=== PATIENT | male | born 1960 | race Caucasian/White ===

== ENCOUNTER 2023-02-22 16:06 | Observation (INO) | payer OTHER ==
[~2023-02-22] VITALS: Ht 177.8 cm; Wt 106.6 kg
[2023-02-22 16:42] LABS: BASOPHILS % 0.6 % (0.0-1.0); EOSINOPHILS # (AUTO) 0.2 (0.0-0.4); EOSINOPHILS % 2.7 % (0.0-6.0); HEMATOCRIT 44.8 % (38.2-49.6); HEMOGLOBIN 14.9 g/dL (14.0-18.0); LYMPHOCYTES # (AUTO) 1.6 (1.0-3.2); LYMPHOCYTES % 23.8 % (18.0-39.1); MEAN CORPUSCULAR HEMOGLOBIN 26.2 pg (28-32); MEAN CORPUSCULAR HGB CONC 33.3 g/dL (31-35); MEAN CORPUSCULAR VOLUME 78.9 fL (81-99); MONOCYTES # (AUTO) 0.6 (0.2-0.8); MONOCYTES % 9.3 % (4.4-11.3); NEUTROPHILS # (AUTO) 4.3 (2.1-6.9); NEUTROPHILS % 63.5 % (38.7-80.0); PLATELET COUNT 192 x10e3/uL (140-360); RED BLOOD COUNT 5.68 x10e6/uL (4.3-5.7)
[2023-02-22] MEDS ORDERED: ASPIRIN 81 MG CHEW TAB PO ONE (16:45)
[2023-02-22 16:56] LABS: INR 0.97; PROTHROMBIN TIME 13.4 seconds (11.9-14.5)
[2023-02-22 16:57] LABS: PARTIAL THROMBOPLASTIN TIME 28.9 seconds (23.8-35.5)
[2023-02-22 17:05] LABS: ALBUMIN 4.2 g/dL (3.5-5.0); ALBUMIN/GLOBULIN RATIO 1.1 (0.8-2.0); ANION GAP 14.4 mmol/L (8-16); CALCIUM 9.2 mg/dL (8.4-10.2); CREATININE, SERUM 1.21 mg/dL (0.72-1.25); POTASSIUM 3.4 mmol/L (3.5-5.1)
[2023-02-22] MEDS ORDERED: SODIUM CHLORIDE 0.9% 1000ML 1,000 ML IV STA (17:18)
[2023-02-22] MEDS ORDERED: IOPAMIDOL 370 MG/ML 100 ML INFUS..BTL INJ ONE (17:42)
[2023-02-22] MEDS ORDERED: FAMOTIDINE 20 MG/2 ML VIAL IV SCH (18:15)
[2023-02-22] MEDS ORDERED: Morphine 2mg Syringe 2 MG/ML SYR IV PRN (18:15)
[2023-02-22] MEDS ORDERED: ONDANSETRON HCL INJ 2MG/ML 2ML 2 MG/ML VIAL IV PRN (18:15)
[2023-02-22] MEDS ORDERED: NITROGLYCERIN 0.4 MG SUBL SL PRN (18:15)
[2023-02-22] MEDS ORDERED: HYDRALAZINE HCL 20 MG/ML VIAL IV PRN (19:45)
[2023-02-22] MEDS ORDERED: MELATONIN 3 MG TAB PO PRN (19:45)
[2023-02-22] MEDS ORDERED: ACETAMINOPHEN 325 MG TAB PO PRN (19:45)
[2023-02-22 20:21] VITALS: BP 157/107; PULSE 59; RESP 18; TEMP 97.7; O2SAT 100
[2023-02-22 20:23] VITALS: BP 157/107; PULSE 59; RESP 18; TEMP 97.7; O2SAT 100
[2023-02-22] MEDS ORDERED: ATORVASTATIN 40 MG TAB PO SCH (21:00)
[2023-02-22] MEDS: ENOXAPARIN SOD INJ 40 MG/0.4 ML SYR SC SCH (21:31)
[2023-02-22] MEDS: FAMOTIDINE 20 MG/2 ML VIAL IV SCH (21:32)
[2023-02-22 22:01] VITALS: BP 157/107; PULSE 59; RESP 18; TEMP 97.7; O2SAT 100
[2023-02-23 00:39] VITALS: BP 142/82; PULSE 62; RESP 17; TEMP 97.8; O2SAT 100
[2023-02-23 00:42] LABS: CREATINE KINASE 71 IU/L (30-200)
[2023-02-23] MEDS ORDERED: LOSARTAN POTAS100 MG PO (01:56)
[2023-02-23] MEDS ORDERED: HYDROCHLOROTHIA25 MG PO (01:56)
[2023-02-23] MEDS ORDERED: TIZANIDINE HCL4 M1 PO (01:56)
[2023-02-23] MEDS ORDERED: CLONIDINE HCL0.2 MG PO (01:56)
[2023-02-23] MEDS ORDERED: MELOXICAM7.5 MG PO (01:56)
[2023-02-23] MEDS ORDERED: AMLODIPINE BESY10 MG PO (01:56)
[2023-02-23] MEDS ORDERED: NEURONTIN400 MG PO (01:56)
[2023-02-23] MEDS ORDERED: TRIAMCINOLONE A15 G1 TOP (01:56)
[2023-02-23] MEDS ORDERED: SERTRALINE HCL100 MG PO (01:56)
[2023-02-23 04:54] LABS: BASOPHILS # (AUTO) 0.1 (0.0-0.1); EOSINOPHILS # (AUTO) 0.2 (0.0-0.4); EOSINOPHILS % 3.4 % (0.0-6.0); HEMATOCRIT 40.6 % (38.2-49.6); HEMOGLOBIN 13.2 g/dL (14.0-18.0); LYMPHOCYTES # (AUTO) 1.6 (1.0-3.2); LYMPHOCYTES % 30.3 % (18.0-39.1); MEAN CORPUSCULAR HEMOGLOBIN 26.3 pg (28-32); MEAN CORPUSCULAR HGB CONC 32.5 g/dL (31-35); MEAN CORPUSCULAR VOLUME 80.9 fL (81-99); MONOCYTES # (AUTO) 0.5 (0.2-0.8); NEUTROPHILS # (AUTO) 2.9 (2.1-6.9); NEUTROPHILS % 56.1 % (38.7-80.0); PLATELET COUNT 159 x10e3/uL (140-360); RED BLOOD COUNT 5.02 x10e6/uL (4.3-5.7); RED CELL DISTRIBUTION WIDTH 14.3 % (11.7-14.4)
[2023-02-23 05:13] LABS: ALBUMIN 3.4 g/dL (3.5-5.0); ALBUMIN/GLOBULIN RATIO 1.1 (0.8-2.0); ANION GAP 12.5 mmol/L (8-16); CALCIUM 8.7 mg/dL (8.4-10.2); CHOL/HDL RATIO 5.2 (3.9-4.7); CREATININE, SERUM 1.2 mg/dL (0.72-1.25); POTASSIUM 3.5 mmol/L (3.5-5.1)
[2023-02-23] MEDS ORDERED: ACETAMINOPHEN-1 EAC4 (05:19)
[2023-02-23 05:57] VITALS: BP 153/93; PULSE 69; RESP 20; TEMP 98.1; O2SAT 100
[2023-02-23 07:50] VITALS: BP 147/91; PULSE 53; RESP 21; TEMP 98.2; O2SAT 100
[2023-02-23 08:14] VITALS: BP 147/91; PULSE 53; RESP 21; TEMP 98.2; O2SAT 100
[2023-02-23] MEDS ORDERED: ASPIRIN 81 MG ENTERIC COATED PO SCH (09:00)
[2023-02-23] MEDS ORDERED: ASPIRIN 81 MG CHEW TAB PO SCH (09:00)
[2023-02-23] MEDS ORDERED: CLOPIDOGREL BISULFATE 75 MG TAB PO ONE (09:00)
[2023-02-23] MEDS: GABAPENTIN 400 MG CAP PO SCH ×3 (09:25→17:38)
[2023-02-23] MEDS: ENOXAPARIN SOD INJ 40 MG/0.4 ML SYR SC SCH (09:27)
[2023-02-23] MEDS: FAMOTIDINE 20 MG/2 ML VIAL IV SCH (09:28)
[2023-02-23 12:08] VITALS: BP 141/92; PULSE 58; RESP 21; TEMP 97.8; O2SAT 100
[2023-02-23 12:57] LABS: CREATINE KINASE 72 IU/L (30-200)
[2023-02-23 16:14] VITALS: BP 152/96; PULSE 59; RESP 21; TEMP 97.5; O2SAT 100
[2023-02-23] MEDS ORDERED: TIZANIDINE HCL 4 MG TAB PO SCH (17:00)
[2023-02-23] MEDS ORDERED: SERTRALINE HCL 100 MG TAB PO SCH (21:00)
[2023-02-24] MEDS ORDERED: HYDROCHLOROTHIAZIDE 25 MG TAB PO SCH (09:00)
[2023-02-24] MEDS ORDERED: AMLODIPINE BESYLATE 10 MG TAB PO SCH (09:00)
[2023-02-24] MEDS ORDERED: LOSARTAN POTASSIUM 100 MG TAB PO SCH (09:00)
== END 2023-02-23 17:38 | disposition home or self-care (01) ==
LOC: ER 16:19 → ERHOLD 18:06 → MED/SURG2 19:44
PROVIDERS: ADMIT Internal Medicine; ATTEND Internal Medicine
DX: R07.9 Chest pain, unspecified (principal); I10 Essential (primary) hypertension; M54.16 Radiculopathy, lumbar region; M54.31 Sciatica, right side; E66.9 Obesity, unspecified; I34.0 Nonrheumatic mitral (valve) insufficiency; I07.1 Rheumatic tricuspid insufficiency; Z79.899 Other long term (current) drug therapy; Z82.49 Family history of ischemic heart disease and other diseases of the circulatory system
CPT/HCPCS: 36415 ×2; 71045; 71260; 80053 ×2; 80061; 82550 ×2; 82553 ×2; 83735; 83880; 84484 ×2; 85025 ×2; 85379; 85610; 85730; 93005; 93306; 99284; G0378 ×2; J0360; J0696 ×2; J1650 ×2; Q9967